=== PATIENT | male | born 1990 | race Caucasian/White ===

== ENCOUNTER 2017-02-07 16:48 | Emergency (ER) | payer OTHER ==
[~2017-02-07] VITALS: Ht 170.1 cm; Wt 59.0 kg
[~2017-02-07 16:48] MED LIST: AMOXICILLIN500 M2 PO; DOXYCYCLINE100 M3 PO; KEFLEX500 MG PO; NKHM; ULTRAM50 MG PO
== END 2017-02-07 18:52 | disposition home or self-care (01) ==
LOC: ED 16:48
DX: S99.921A Unspecified injury of right foot, initial encounter (principal); F17.200 Nicotine dependence, unspecified, uncomplicated; W22.8XXA Striking against or struck by other objects, initial encounter; Y93.89 Activity, other specified; Y92.9 Unspecified place or not applicable; Y99.9 Unspecified external cause status

== ENCOUNTER 2020-05-23 09:52 | Emergency (ER) | payer OTHER ==
[~2020-05-23] VITALS: Wt 65.8 kg
[2020-05-23] MEDS ORDERED: NALOXONE (10:24)
[2020-05-23] MEDS ORDERED: BUPRENORPHINE (10:24)
[2020-05-23] MEDS ORDERED: ZOFRAN4 MG PO (11:19)
[2020-05-23] MEDS ORDERED: AMOXICILLIN500 M3 PO (11:19)
== END 2020-05-23 11:43 | disposition home or self-care (01) ==
LOC: ED 09:52
DX: J02.0 Streptococcal pharyngitis (principal)

== ENCOUNTER → 2020-06-17 | Outpatient (CLI) | payer OTHER ==
[~2020-06-17] MED LIST changes: +AMOXICILLIN500 M3 PO; +ATARAX,VISTARIL50 MG PO; +BUPRENORP-NALO1 EAC1 SL; +BUPRENORPHINE; +DICYCLOMINE HCL20 MG PO; +METHOCARBAMOL750 M1 PO; +MOTRIN 600 MG E4 TAB PO; +NALOXONE; +NATURE'S BLEND F1 MG PO; +VITAMIN B-1100 M1 PO; +ZOFRAN 4 MG ED2 TAB PO; +ZOFRAN4 MG PO
== END | disposition home or self-care (01) ==
LOC: COVID19 01:07
PROVIDERS: ATTEND Student in an Organized Health Care Education/Training Program
DX: Z20.828 Contact with and (suspected) exposure to other viral communicable diseases (principal)

== ENCOUNTER 2020-06-21 10:24 | Inpatient (IN) | payer OTHER ==
[~2020-06-21] VITALS: Ht 182.8 cm; Wt 64.4 kg
[~2020-06-21 10:24] MED LIST changes: -ATARAX,VISTARIL50 MG PO; -BUPRENORP-NALO1 EAC1 SL; -DICYCLOMINE HCL20 MG PO; -METHOCARBAMOL750 M1 PO; -MOTRIN 600 MG E4 TAB PO; -NATURE'S BLEND F1 MG PO; -VITAMIN B-1100 M1 PO; -ZOFRAN 4 MG ED2 TAB PO
[2020-06-21 10:29] VITALS: BP 116/79
[2020-06-21 11:29] LABS: BASO % 0.3 % (0.0-1.0); EOS % 0.2 % (1.0-4.0); HEMATOCRIT 42.2 % (42.0-52.0); LYMPH % 8.5 % (27.0-41.0); MEAN CORPUSCULAR HGB 28.4 pg (27.0-31.0); MEAN CORPUSCULAR HGB CONC 31.5 g/dl (33.0-37.0); MEAN PLATELET VOLUME 9.2 fl (9.6-12.3); MONO # 0.3 10*3/uL (0.1-1.0); MONO % 2.6 % (3.0-9.0); NEUT # 10.3 10*3/uL (2.3-7.9); NEUT % 88.1 % (47.0-73.0); PLATELET COUNT AUTOMATED 236 10*3/uL (130-400); RED BLOOD COUNT 4.69 10*6/uL (4.50-5.90); RED CELL DISTRI WIDTH 13.3 % (0-14.5); WHITE BLOOD COUNT 11.6 10*3/uL (4.8-10.8)
[2020-06-21 11:35] LABS: BILIRUBIN Negative (Negative); BLOOD Negative (Negative); CLARITY Clear (Clear); COLOR Yellow (Yellow); GLUCOSE Negative (Negative); KETONE Trace (Negative); LEUKO ESTERASE Trace (Negative); NITRITE Negative (Negative); SPECIFIC GRAVITY 1.025 (1.001-1.030)
[2020-06-21 11:45] LABS: ALBUMIN 4.2 gm/dl (3.1-4.5); ALKALINE PHOSPHATASE 73 U/L (45-117); BUN 10 mg/dl (7-24); CHLORIDE 107 mmol/L (98-107); CREATININE 0.73 mg/dL (0.70-1.30); POTASSIUM 3.6 mmol/L (3.5-5.1); SGOT/AST 16 IU/L (3-35); SGPT/ALT 20 U/L (12-78); SODIUM 140 mmol/L (136-145); TOTAL PROTEIN 7.2 gm/dL (6.4-8.2)
[2020-06-21 11:48] LABS: URINE AMPHETAMINES < 1000 (1000ng/ml); URINE BARBITURATES < 200 (200ng/ml); URINE BENZODIAZEPINES < 200 (200ng/ml); URINE CANNABINOIDS (THC) < 50 (50ng/ml); URINE COCAINE > 300 (300ng/ml); URINE METHADONE < 300 (300ng/ml); URINE OPIATES > 300 (300ng/ml)
[2020-06-21 11:50] LABS: BACTERIA TRACE; EPITHELIAL CELLS 0-2; MUCOUS 2+
[2020-06-21 11:51] LABS: URINE PHENCYCLIDINE < 25 (25ng/ml)
[2020-06-21 11:55] LABS: ETHYL ALCOHOL < 3.0 mg/dl (<3)
[2020-06-21 12:30] VITALS: BP 114/76
[2020-06-21 14:30] VITALS: BP 114/78
[2020-06-21] MEDS ORDERED: BUPRENORP-NALO1 EAC1 SL (16:22)
[2020-06-21 16:36] VITALS: BP 116/78
[2020-06-21 17:00] VITALS: BP 144/77
[2020-06-21 20:00] VITALS: BP 118/71
[2020-06-22] VITALS: BP 136/72
[2020-06-22 04:00] VITALS: BP 120/68
[2020-06-22 08:00] VITALS: BP 106/60
[2020-06-22 12:00] VITALS: BP 100/63
[2020-06-22 16:00] VITALS: BP 119/73
[2020-06-22 20:10] VITALS: BP 100/60; BP 89/61
[2020-06-23] VITALS: BP 100/62
[2020-06-23 08:00] VITALS: BP 99/58
[2020-06-23 12:00] VITALS: BP 112/64
[2020-06-23] MEDS ORDERED: VITAMIN B-1100 M1 PO (13:16)
[2020-06-23] MEDS ORDERED: ATARAX,VISTARIL50 MG PO (13:16)
[2020-06-23] MEDS ORDERED: DICYCLOMINE HCL20 MG PO (13:16)
[2020-06-23] MEDS ORDERED: ZOFRAN 4 MG ED2 TAB PO (13:16)
[2020-06-23] MEDS ORDERED: METHOCARBAMOL750 M1 PO (13:16)
[2020-06-23] MEDS ORDERED: NATURE'S BLEND F1 MG PO (13:16)
[2020-06-23] MEDS ORDERED: MOTRIN 600 MG E4 TAB PO (13:16)
[2020-06-23 16:00] VITALS: BP 100/68
== END 2020-06-23 19:36 | disposition left against medical advice (07) | DRG 770 ==
LOC: ED 10:24 → EDHOLD 11:00 → 5E 11:00 → EDHOLD 13:38 → 5E 16:13
PROVIDERS: Nurse Practitioner Family; ADMIT Student in an Organized Health Care Education/Training Program; ATTEND Student in an Organized Health Care Education/Training Program
DX: F11.23 Opioid dependence with withdrawal (principal); R19.7 Diarrhea, unspecified; R10.9 Unspecified abdominal pain; D72.829 Elevated white blood cell count, unspecified; R73.9 Hyperglycemia, unspecified; F17.210 Nicotine dependence, cigarettes, uncomplicated; Z53.29 Procedure and treatment not carried out because of patient's decision for other reasons

== ENCOUNTER → 2020-08-09 | Outpatient (CLI) | payer OTHER ==
[~2020-08-09] MED LIST changes: +ATARAX,VISTARIL50 MG PO; +BUPRENORP-NALO1 EAC1 SL; +DICYCLOMINE HCL20 MG PO; +METHOCARBAMOL750 M1 PO; +MOTRIN 600 MG E4 TAB PO; +NATURE'S BLEND F1 MG PO; +VITAMIN B-1100 M1 PO; +ZOFRAN 4 MG ED2 TAB PO
== END | disposition home or self-care (01) ==
LOC: COVID19 15:48
PROVIDERS: ATTEND Family Medicine
DX: Z20.822 Contact with and (suspected) exposure to COVID-19 (principal)

== ENCOUNTER → 2020-08-16 | Outpatient (CLI) | payer OTHER ==
[~2020-08-16] MED LIST changes: +IBUPROFEN600 MG PO; +PREDNISONE20 M1 PO; +PROVENTIL HFA6.7 GM INH; +ZITHROMAX500 MG PO
== END | disposition home or self-care (01) ==
LOC: COVID19 14:13
PROVIDERS: ATTEND Family Medicine
DX: Z20.822 Contact with and (suspected) exposure to COVID-19 (principal)

== ENCOUNTER → 2020-09-08 | Outpatient (CLI) | payer OTHER | END | disposition home or self-care (01) | LOC: COVID19 16:05 | PROVIDERS: ATTEND Family Medicine | DX: Z20.822 Contact with and (suspected) exposure to COVID-19 (principal) ==

== ENCOUNTER 2020-09-26 08:45 | Emergency (ER) | payer OTHER ==
[~2020-09-26] VITALS: Ht 182.8 cm; Wt 65.8 kg
[~2020-09-26 08:45] MED LIST changes: -IBUPROFEN600 MG PO; -PREDNISONE20 M1 PO; -PROVENTIL HFA6.7 GM INH; -ZITHROMAX500 MG PO
[2020-09-26] MEDS ORDERED: ZITHROMAX500 MG PO (11:12)
[2020-09-26] MEDS ORDERED: IBUPROFEN600 MG PO (11:12)
[2020-09-26] MEDS ORDERED: PROVENTIL HFA6.7 GM INH (11:12)
[2020-09-26] MEDS ORDERED: PREDNISONE20 M1 PO (11:12)
== END 2020-09-26 11:28 | disposition home or self-care (01) ==
LOC: ED 08:45
DX: J02.9 Acute pharyngitis, unspecified (principal); R05 Cough; R51.9 Headache, unspecified; F17.200 Nicotine dependence, unspecified, uncomplicated; Z20.822 Contact with and (suspected) exposure to COVID-19; Z79.899 Other long term (current) drug therapy

== ENCOUNTER → 2020-10-03 | Outpatient (CLI) | payer OTHER ==
[~2020-10-03] MED LIST changes: +IBUPROFEN600 MG PO; +PREDNISONE20 M1 PO; +PROVENTIL HFA6.7 GM INH; +ZITHROMAX500 MG PO
== END | disposition home or self-care (01) ==
LOC: COVID19 10:32
PROVIDERS: ATTEND Internal Medicine
DX: Z11.52 Encounter for screening for COVID-19 (principal)

== ENCOUNTER → 2021-05-23 | Outpatient (CLI) | payer OTHER | END | disposition home or self-care (01) | LOC: COVID19 18:15 | PROVIDERS: ATTEND Internal Medicine | DX: Z11.52 Encounter for screening for COVID-19 (principal) ==

== ENCOUNTER 2021-07-24 15:29 | Emergency (ER) | payer OTHER ==
[~2021-07-24] VITALS: Wt 65.8 kg
[2021-07-24] MEDS ORDERED: AMOXICILLIN875 MG PO (15:52)
[2021-07-24] MEDS ORDERED: Motrin,Rufen800 MG PO (15:52)
== END 2021-07-24 16:09 | disposition home or self-care (01) ==
LOC: ED 15:29
DX: K08.89 Other specified disorders of teeth and supporting structures (principal)

== ENCOUNTER 2022-01-01 20:44 | Emergency (ER) | payer OTHER ==
[~2022-01-01] VITALS: Ht 175.2 cm; Wt 77.1 kg
[~2022-01-01 20:44] MED LIST changes: +AMOXICILLIN875 MG PO; +Motrin,Rufen800 MG PO
[2022-01-01] MEDS ORDERED: IBUPROFEN400 MG PO (20:59)
[2022-01-01] MEDS ORDERED: AUGMENTIN 875-875 MG PO (20:59)
== END 2022-01-01 21:02 | disposition home or self-care (01) ==
LOC: ED 20:44
DX: K04.7 Periapical abscess without sinus (principal); Z90.89 Acquired absence of other organs; F17.210 Nicotine dependence, cigarettes, uncomplicated

== ENCOUNTER 2023-11-08 14:58 | Emergency (ER) | payer OTHER ==
[~2023-11-08] VITALS: Ht 182.8 cm; Wt 68.0 kg
[~2023-11-08 14:58] MED LIST changes: +AUGMENTIN 875-875 MG PO; +IBUPROFEN400 MG PO
[2023-11-08] MEDS ORDERED: SUBOXONE 8 MG-1 EACH BC (16:07)
== END 2023-11-08 16:22 | disposition home or self-care (01) ==
LOC: ED 14:58
DX: Z02.83 Encounter for blood-alcohol and blood-drug test (principal); F11.10 Opioid abuse, uncomplicated; Z90.89 Acquired absence of other organs; Z98.890 Other specified postprocedural states; F17.210 Nicotine dependence, cigarettes, uncomplicated